=== PATIENT | male | born 1950 | race African-American/Black ===

== ENCOUNTER 2017-03-09 09:32 | Emergency (ER) | payer MEDICAID ==
[~2017-03-09] VITALS: Ht 190.5 cm; Wt 86.4 kg
[~2017-03-09 09:32] MED LIST: NOCURR
[2017-03-09] MEDS ORDERED: PHENYLEPHRINE HCL 1% 15 ML NASAL SPRAY NASAL ONE (10:30)
[2017-03-09 12:43] VITALS: BP 153/89
== END 2017-03-09 12:54 | disposition home or self-care (01) ==
LOC: EMS 09:33
DX: R04.0 Epistaxis (principal); I10 Essential (primary) hypertension; F17.210 Nicotine dependence, cigarettes, uncomplicated; F12.90 Cannabis use, unspecified, uncomplicated
CPT/HCPCS: 30901; 99283; 99284

== ENCOUNTER 2017-03-11 11:14 | Emergency (ER) | payer SELFPAY ==
[~2017-03-11] VITALS: Ht 190.5 cm; Wt 86.0 kg
[2017-03-11 12:44] VITALS: BP 142/85
== END 2017-03-11 13:00 | disposition home or self-care (01) ==
LOC: EMS 11:17
DX: R04.0 Epistaxis (principal); I10 Essential (primary) hypertension; F17.210 Nicotine dependence, cigarettes, uncomplicated; F12.90 Cannabis use, unspecified, uncomplicated
CPT/HCPCS: 99283

== ENCOUNTER 2017-03-15 03:32 | Inpatient (IN) | payer MEDICAID ==
[2017-03-15] VITALS (16 sets, daily range): BP systolic 118–158; BP diastolic 66–90
[~2017-03-15] VITALS: Ht 185.4 cm; Wt 72.8 kg
[2017-03-15 03:50] LABS: HEMATOCRIT 23.6 % (41-53); HEMOGLOBIN 7.2 g/dL (13.5-17.5); MEAN CORPUSCULAR HEMOGLOBIN 19.6 pg (26.0-34.0); MEAN CORPUSCULAR HGB CONC 30.5 G/dL (31.0-37.0); MEAN CORPUSCULAR VOLUME 64 fL (80-100); PLATELET COUNT (AUTO) 385 K/uL (150-450); RED BLOOD CELL COUNT(AUTO) 3.67 MIL/uL (4.50-5.90); RED CELL DISTRIBUTION WIDTH 22.9 % (11.5-14.5); WHITE BLOOD COUNT (AUTO) 5.9 K/uL (4.5-11.0)
[2017-03-15 03:53] LABS: ANION GAP 11 mmol/L (8-16); CALCIUM, TOTAL 8.5 mg/dL (8.8-10.5); CARBON DIOXIDE 22 mmol/L (22-29); CHLORIDE 101 mmol/L (98-107); CREATININE 1.66 mg/dL (0.60-1.30); GLOMERULAR FILTR. RATE CALC 51 mL/min (>60); POTASSIUM 3.8 mmol/L (3.5-5.1); SODIUM SERUM 134 mmol/L (136-145); UREA NITROGEN, BLOOD 15 mg/dL (7-18)
[2017-03-15 04:00] LABS: PROTHROMBIN TIME 10.1 SEC (9.4-11.6)
[2017-03-15 04:05] LABS: LYMPHOCYTES % (MANUAL) 47 % (22-44); TOTAL CELLS COUNTED 100
[2017-03-15 04:06] LABS: RBC MORPHOLOGY COMMENT ABNORMAL RBC MORPH
[2017-03-15] MEDS ORDERED: 0.9% SODIUM CHLORIDE 10 ML SYRINGE IVP PRN (04:15)
[2017-03-15] MEDS ORDERED: ONDANSETRON HCL 4 MG/2 ML VIAL IVP PRN ×2 (04:15→13:15)
[2017-03-15] MEDS ORDERED: HydrALAZINE HCL 20 MG/ML VIAL IVP ONE ×2 (04:15)
[2017-03-15 04:18] LABS: ALANINE AMINOTRANSFERASE 80 U/L (12-78); ALBUMIN 3.4 g/dL (3.4-5.0); ASPARTATE AMINOTRANSFERASE 77 U/L (15-37); BILIRUBIN,TOTAL 0.2 mg/dL (0.1-1.0); CREATINE KINASE MB 2.8 ng/mL (0-5); CREATINE KINASE, TOTAL 226 U/L (39-308); TOTAL PROTEIN, SERUM 7.8 g/dL (6.4-8.2)
[2017-03-15] MEDS ORDERED: LABETALOL HCL 200 MG in DEXTROSE 5%-WATER 160 ML IV PRN (04:21)
[2017-03-15 04:29] LABS: APPEARANCE,URINE CLEAR (CLEAR); GLUCOSE, URINE (UA) NEGATIVE (NEGATIVE); KETONES,URINE NEGATIVE (NEGATIVE); LEUKOCYTE ESTERASE ,URINE NEGATIVE (NEGATIVE); OCCULT BLOOD,URINE NEGATIVE (NEGATIVE); PH,URINE 5.5 (5.0-8.0); PROTEIN,URINE NEGATIVE (NEGATIVE)
[2017-03-15 04:33] LABS: ADD UA MICROSCOPIC NO
[2017-03-15] MEDS ORDERED: MAGNESIUM HYDROXIDE SUSPENSION 30 ML UDCUP PO PRN (13:15)
[2017-03-15] MEDS ORDERED: ALBUTEROL SULFATE 2.5 MG/0.5 ML NEB SOLUTION NEB PRN (13:15)
[2017-03-15] MEDS ORDERED: HYDROCODONE/ACETAMINOPHEN 5-325 MG TABLET PO PRN (13:15)
[2017-03-15] MEDS ORDERED: IPRATROPIUM BROMIDE 0.5 MG/2.5 ML NEB SOLUTION NEB PRN (13:15)
[2017-03-15] MEDS ORDERED: MORPHINE SULFATE 2 MG/ML SYRINGE IVP PRN (13:15)
[2017-03-15] MEDS ORDERED: BISACODYL 10 MG RECTAL RECTAL SUPPOSITORY PR PRN (13:15)
[2017-03-15 14:28] LABS: HEMATOCRIT 23.1 % (41-53); MEAN CORPUSCULAR HEMOGLOBIN 19.4 pg (26.0-34.0); MEAN CORPUSCULAR HGB CONC 29.9 G/dL (31.0-37.0); MEAN CORPUSCULAR VOLUME 65 fL (80-100); PLATELET COUNT (AUTO) 331 K/uL (150-450); RED BLOOD CELL COUNT(AUTO) 3.55 MIL/uL (4.50-5.90); RED CELL DISTRIBUTION WIDTH 22.1 % (11.5-14.5); WHITE BLOOD COUNT (AUTO) 4.5 K/uL (4.5-11.0)
[2017-03-15 14:31] LABS: HEMOGLOBIN 6.9 g/dL (13.5-17.5)
[2017-03-15 14:54] LABS: EOSINOPHILS % (MANUAL) 1 % (1-6); LYMPHOCYTES % (MANUAL) 34 % (22-44); TOTAL CELLS COUNTED 100
[2017-03-15] MEDS: DEXTROSE 5%-0.9% SODIUM CHL 1,000 ML IV SCH (15:39)
[2017-03-15] MEDS ORDERED: ACETAMINOPHEN 650 MG/20.3 ML SOLUTION UDCUP NG PRN (18:45)
[2017-03-15] MEDS: PIPERACILLIN/TAZO 3.375 GM/D5W 50 ML IV SCH (20:14)
[2017-03-15] MEDS ORDERED: ACETAMINOPHEN 325 MG RECTAL SUPPOSITORY PR PRN (20:15)
[2017-03-15] MEDS ORDERED: ACETAMINOPHEN 650 MG RECTAL SUPPOSITORY PR PRN (20:30)
[2017-03-15] MEDS ORDERED: VANCOMYCIN HCL 1.5 GM in DEXTROSE 5%-WATER 250 ML IV ONE (21:00)
[2017-03-15] MEDS: DOCUSATE SODIUM 100 MG CAPSULE PO SCH (21:00)
[2017-03-15] MEDS: LABETALOL HCL 200 MG in DEXTROSE 5%-WATER 160 ML IV PRN (22:39)
[2017-03-16] VITALS (8 sets, daily range): BP systolic 116–158; BP diastolic 65–87
[2017-03-16] MEDS ORDERED: SODIUM CHLORIDE 0.9% 0 ML IV ONE (01:10)
[2017-03-16] MEDS: DEXTROSE 5%-0.9% SODIUM CHL 1,000 ML IV SCH ×2 (01:37→21:49)
[2017-03-16] MEDS: PIPERACILLIN/TAZO 3.375 GM/D5W 50 ML IV SCH ×4 (03:34→21:03)
[2017-03-16] MEDS: LABETALOL HCL 200 MG in DEXTROSE 5%-WATER 160 ML IV PRN (04:01)
[2017-03-16 05:40] LABS: EOSINOPHILS % (AUTO) 0.4 % (1.0-6.0); HEMATOCRIT 29.5 % (41-53); HEMOGLOBIN 8.7 g/dL (13.5-17.5); LYMPHOCYTES # (AUTO) 1.9 K/uL (1.0-4.8); MEAN CORPUSCULAR HEMOGLOBIN 20.5 pg (26.0-34.0); MEAN CORPUSCULAR HGB CONC 29.6 G/dL (31.0-37.0); MEAN CORPUSCULAR VOLUME 70 fL (80-100); MONOCYTES # (AUTO) 0.7 K/uL (0.1-1.0); MONOCYTES % (AUTO) 9.6 % (2.0-9.0); NEUTROPHILS # (AUTO) 4.5 K/uL (1.8-7.7); PLATELET COUNT (AUTO) 311 K/uL (150-450); RED BLOOD CELL COUNT(AUTO) 4.25 MIL/uL (4.50-5.90); RED CELL DISTRIBUTION WIDTH 25.6 % (11.5-14.5); WHITE BLOOD COUNT (AUTO) 7.1 K/uL (4.5-11.0)
[2017-03-16 06:01] LABS: ALBUMIN 2.8 g/dL (3.4-5.0); BILIRUBIN,TOTAL 0.6 mg/dL (0.1-1.0); CALCIUM, TOTAL 8.2 mg/dL (8.8-10.5); CREATININE 1.53 mg/dL (0.60-1.30); PHOSPHORUS 3.1 mg/dL (2.5-4.9); POTASSIUM 3.8 mmol/L (3.5-5.1); TOTAL PROTEIN, SERUM 6.7 g/dL (6.4-8.2)
[2017-03-16] MEDS: VANCOMYCIN HCL 1.5 GM in DEXTROSE 5%-WATER 250 ML IV SCH (08:15)
[2017-03-16] MEDS: DOCUSATE SODIUM 100 MG CAPSULE PO SCH ×2 (08:25→21:02)
[2017-03-16] MEDS: PANTOPRAZOLE SODIUM 40 MG/VIAL IVP SCH (08:25)
[2017-03-16 08:53] LABS: RBC MORPHOLOGY COMMENT DIMORPHIC RBC
[2017-03-17] MEDS: PIPERACILLIN/TAZO 3.375 GM/D5W 50 ML IV SCH ×4 (03:23→21:09)
[2017-03-17 04:22] VITALS: BP 145/89
[2017-03-17 07:00] LABS: CALCIUM, TOTAL 8.3 mg/dL (8.8-10.5); CREATININE 1.78 mg/dL (0.60-1.30)
[2017-03-17 07:26] VITALS: BP 151/96
[2017-03-17 07:29] LABS: EOSINOPHILS % (AUTO) 0.9 % (1.0-6.0); HEMATOCRIT 29.8 % (41-53); LYMPHOCYTES # (AUTO) 2.6 K/uL (1.0-4.8); MEAN CORPUSCULAR HEMOGLOBIN 20.7 pg (26.0-34.0); MEAN CORPUSCULAR HGB CONC 30.1 G/dL (31.0-37.0); MEAN CORPUSCULAR VOLUME 69 fL (80-100); MONOCYTES # (AUTO) 1.2 K/uL (0.1-1.0); MONOCYTES % (AUTO) 14.2 % (2.0-9.0); NEUTROPHILS # (AUTO) 4.4 K/uL (1.8-7.7); NEUTROPHILS % (AUTO) 52.9 % (40.0-70.0); PLATELET COUNT (AUTO) 318 K/uL (150-450); RED BLOOD CELL COUNT(AUTO) 4.33 MIL/uL (4.50-5.90); RED CELL DISTRIBUTION WIDTH 25.8 % (11.5-14.5); WHITE BLOOD COUNT (AUTO) 8.2 K/uL (4.5-11.0)
[2017-03-17] MEDS: VANCOMYCIN HCL 1.5 GM in DEXTROSE 5%-WATER 250 ML IV SCH (07:56)
[2017-03-17] MEDS: PANTOPRAZOLE SODIUM 40 MG/VIAL IVP SCH (07:57)
[2017-03-17] MEDS: DOCUSATE SODIUM 100 MG CAPSULE PO SCH ×2 (07:57→21:09)
[2017-03-17 08:45] LABS: RBC MORPHOLOGY COMMENT DIMORPHIC RBC
[2017-03-17 11:25] VITALS: BP 147/77
[2017-03-17] MEDS: DEXTROSE 5%-0.9% SODIUM CHL 1,000 ML IV SCH ×2 (13:07→21:08)
[2017-03-17 15:48] VITALS: BP 142/75
[2017-03-17 19:48] VITALS: BP 146/88
[2017-03-17] MEDS: SIMVASTATIN 10 MG TABLET PO SCH (21:09)
[2017-03-17 23:45] VITALS: BP 152/86
[2017-03-18 04:08] LABS: HEPATITIS Bs ANTIGEN SCREEN P Negative (Negative); HEPATITIS C AB SCREEN >11.0 s/co ratio (0.0-0.9)
[2017-03-18] MEDS: PIPERACILLIN/TAZO 3.375 GM/D5W 50 ML IV SCH ×4 (04:14→23:02)
[2017-03-18] MEDS: ENALAPRILAT DIHYDRATE 1.25 MG/ML VIAL IVP PRN ×2 (04:16→23:55)
[2017-03-18 04:22] VITALS: BP 162/90
[2017-03-18 07:21] LABS: CALCIUM, TOTAL 8.6 mg/dL (8.8-10.5); CREATININE 1.66 mg/dL (0.60-1.30)
[2017-03-18 08:06] VITALS: BP 155/73
[2017-03-18] MEDS: DOCUSATE SODIUM 100 MG CAPSULE PO SCH ×2 (08:06→20:29)
[2017-03-18] MEDS: PANTOPRAZOLE SODIUM 40 MG/VIAL IVP SCH (08:17)
[2017-03-18] MEDS: VANCOMYCIN HCL 1.25 GM in DEXTROSE 5%-WATER 250 ML IV SCH ×2 (08:17→20:24)
[2017-03-18] MEDS: DEXTROSE 5%-0.9% SODIUM CHL 1,000 ML IV SCH ×2 (10:38→23:05)
[2017-03-18 11:28] VITALS: BP 150/86
[2017-03-18 15:35] VITALS: BP 158/88
[2017-03-18] MEDS: VANCOMYCIN HCL 1.5 GM in DEXTROSE 5%-WATER 250 ML IV SCH ×2 (20:22→20:23)
[2017-03-18] MEDS: SIMVASTATIN 10 MG TABLET PO SCH (20:29)
[2017-03-18] MEDS: ACETAMINOPHEN 325 MG TABLET PO PRN (23:55)
[2017-03-18 23:58] VITALS: BP 145/103
[2017-03-19] MEDS: PIPERACILLIN/TAZO 3.375 GM/D5W 50 ML IV SCH ×4 (03:25→22:59)
[2017-03-19 04:27] VITALS: BP 130/83
[2017-03-19 07:15] LABS: CALCIUM, TOTAL 9.1 mg/dL (8.8-10.5); CREATININE 1.52 mg/dL (0.60-1.30)
[2017-03-19 07:38] VITALS: BP 110/85
[2017-03-19] MEDS: DOCUSATE SODIUM 100 MG CAPSULE PO SCH ×2 (08:44→20:18)
[2017-03-19] MEDS: VANCOMYCIN HCL 1.25 GM in DEXTROSE 5%-WATER 250 ML IV SCH ×2 (08:45→20:06)
[2017-03-19] MEDS: PANTOPRAZOLE SODIUM 40 MG/VIAL IVP SCH (08:45)
[2017-03-19] MEDS: DEXTROSE 5%-0.9% SODIUM CHL 1,000 ML IV SCH (15:00)
[2017-03-19 15:25] VITALS: BP 173/93
[2017-03-19] MEDS: ENALAPRILAT DIHYDRATE 1.25 MG/ML VIAL IVP PRN (15:56)
[2017-03-19 17:18] VITALS: BP 114/76
[2017-03-19 19:33] VITALS: BP 145/86
[2017-03-19] MEDS: ACETAMINOPHEN 325 MG TABLET PO PRN (20:07)
[2017-03-19] MEDS: SIMVASTATIN 10 MG TABLET PO SCH (20:18)
[2017-03-19 22:58] LABS: APPEARANCE,URINE CLOUDY (CLEAR); GLUCOSE, URINE (UA) NEGATIVE (NEGATIVE); KETONES,URINE NEGATIVE (NEGATIVE); LEUKOCYTE ESTERASE ,URINE NEGATIVE (NEGATIVE); OCCULT BLOOD,URINE LARGE (NEGATIVE); PROTEIN,URINE SEE CONFIRM (NEGATIVE)
[2017-03-19 22:59] LABS: ADD UA MICROSCOPIC YES
[2017-03-19 23:32] LABS: RBC,URINE >100 /HPF (0-2); SULFOSALICYLIC ACID,URINE 2+ (Negative)
[2017-03-19 23:33] LABS: SQUAMOUS EPITHELIAL CELL,UR Few /LPF (None Seen); WBC,URINE 0-2 /HPF (0-5)
[2017-03-19 23:51] VITALS: BP 151/86
[2017-03-20] MEDS: PIPERACILLIN/TAZO 3.375 GM/D5W 50 ML IV SCH ×4 (03:45→22:04)
[2017-03-20 04:02] VITALS: BP 152/80
[2017-03-20] MEDS: DEXTROSE 5%-0.9% SODIUM CHL 1,000 ML IV SCH (05:14)
[2017-03-20 06:42] LABS: BASOPHILS % (AUTO) 0.1 % (0.0-2.0); HEMATOCRIT 31.4 % (41-53); HEMOGLOBIN 9.3 g/dL (13.5-17.5); LYMPHOCYTES # (AUTO) 1.5 K/uL (1.0-4.8); LYMPHOCYTES % (AUTO) 16.8 % (22.0-44.0); MEAN CORPUSCULAR HEMOGLOBIN 20.2 pg (26.0-34.0); MEAN CORPUSCULAR HGB CONC 29.7 G/dL (31.0-37.0); MEAN CORPUSCULAR VOLUME 68 fL (80-100); MONOCYTES % (AUTO) 10.6 % (2.0-9.0); NEUTROPHILS # (AUTO) 6.1 K/uL (1.8-7.7); NEUTROPHILS % (AUTO) 66.5 % (40.0-70.0); PLATELET COUNT (AUTO) 415 K/uL (150-450); WHITE BLOOD COUNT (AUTO) 9.1 K/uL (4.5-11.0)
[2017-03-20 07:25] LABS: CREATININE 1.56 mg/dL (0.60-1.30); MAGNESIUM 1.9 mg/dL (1.80-2.40); POTASSIUM 3.9 mmol/L (3.5-5.1)
[2017-03-20 07:39] VITALS: BP 153/87
[2017-03-20] MEDS: PANTOPRAZOLE SODIUM 40 MG/VIAL IVP SCH (08:15)
[2017-03-20] MEDS: VANCOMYCIN HCL 1.25 GM in DEXTROSE 5%-WATER 250 ML IV SCH ×2 (08:16→19:57)
[2017-03-20] MEDS: DOCUSATE SODIUM 100 MG CAPSULE PO SCH ×2 (08:16→20:02)
[2017-03-20 08:41] LABS: RBC MORPHOLOGY COMMENT DIMORPHIC RBC
[2017-03-20 11:26] VITALS: BP 136/74
[2017-03-20 15:23] VITALS: BP 149/86
[2017-03-20] MEDS: ACETAMINOPHEN 325 MG TABLET PO PRN ×2 (17:17→21:17)
[2017-03-20 19:29] VITALS: BP 141/75
[2017-03-20] MEDS: SIMVASTATIN 10 MG TABLET PO SCH (20:00)
[2017-03-20 23:38] VITALS: BP 134/81
[2017-03-21] MEDS: DEXTROSE 5%-0.9% SODIUM CHL 1,000 ML IV SCH (03:57)
[2017-03-21] MEDS: PIPERACILLIN/TAZO 3.375 GM/D5W 50 ML IV SCH ×2 (03:57→13:55)
[2017-03-21] MEDS: ACETAMINOPHEN 325 MG TABLET PO PRN (04:50)
[2017-03-21 04:55] VITALS: BP 156/95
[2017-03-21 06:37] LABS: CALCIUM, TOTAL 8.9 mg/dL (8.8-10.5); CREATININE 1.5 mg/dL (0.60-1.30)
[2017-03-21 06:44] LABS: BASOPHILS % (AUTO) 0.2 % (0.0-2.0); EOSINOPHILS % (AUTO) 6.1 % (1.0-6.0); HEMATOCRIT 31.8 % (41-53); HEMOGLOBIN 9.4 g/dL (13.5-17.5); LYMPHOCYTES # (AUTO) 1.8 K/uL (1.0-4.8); LYMPHOCYTES % (AUTO) 17.5 % (22.0-44.0); MEAN CORPUSCULAR HEMOGLOBIN 20.3 pg (26.0-34.0); MEAN CORPUSCULAR HGB CONC 29.7 G/dL (31.0-37.0); MEAN CORPUSCULAR VOLUME 68 fL (80-100); MONOCYTES # (AUTO) 0.8 K/uL (0.1-1.0); NEUTROPHILS # (AUTO) 6.8 K/uL (1.8-7.7); NEUTROPHILS % (AUTO) 68.2 % (40.0-70.0); PLATELET COUNT (AUTO) 380 K/uL (150-450); RED BLOOD CELL COUNT(AUTO) 4.65 MIL/uL (4.50-5.90); RED CELL DISTRIBUTION WIDTH 25.6 % (11.5-14.5)
[2017-03-21 07:32] VITALS: BP 144/68
[2017-03-21] MEDS: VANCOMYCIN HCL 1.25 GM in DEXTROSE 5%-WATER 250 ML IV SCH (09:05)
[2017-03-21] MEDS: PANTOPRAZOLE SODIUM 40 MG/VIAL IVP SCH (09:05)
[2017-03-21] MEDS: DOCUSATE SODIUM 100 MG CAPSULE PO SCH (09:05)
[2017-03-21 09:28] LABS: RBC MORPHOLOGY COMMENT DIMORPHIC RBC
[2017-03-21 11:30] VITALS: BP 145/92
== END 2017-03-21 15:00 | DRG 44 ==
LOC: EMS 03:33 → ICU 04:40 → 5S 03-16 13:02
PROVIDERS: ADMIT Hospitalist; ATTEND Hospitalist
PROC: 30233N1 Transfusion of Nonautologous Red Blood Cells into Peripheral Vein, Percutaneous Approach (ICD-10-PCS; principal; 2017-03-15)
DX: I61.5 Nontraumatic intracerebral hemorrhage, intraventricular (principal); J69.0 Pneumonitis due to inhalation of food and vomit; G81.91 Hemiplegia, unspecified affecting right dominant side; I10 Essential (primary) hypertension; F17.210 Nicotine dependence, cigarettes, uncomplicated; D64.9 Anemia, unspecified; R47.01 Aphasia; F19.10 Other psychoactive substance abuse, uncomplicated; Z86.73 Personal history of transient ischemic attack (TIA), and cerebral infarction without residual deficits; R41.4 Neurologic neglect syndrome; F14.10 Cocaine abuse, uncomplicated; F12.10 Cannabis abuse, uncomplicated
CPT/HCPCS: 51702; 70450; 80074; 82607; 82728; 82746; 83540; 83550; 83735; 84100; 84145; 86850; 86900; 86901; 86920; 87040; 87081; 87086; 92507; 92523; 92526; 93005; 93306; 96365; 97110; 97112; 97163; 97167; 97530; 97535; 99291; C9113; J0360; J2543; J3370; J3490; J7030; J7042; J7060; P9016

== ENCOUNTER 2017-03-27 12:16 | Emergency (ER) | payer MEDICAID ==
[~2017-03-27] VITALS: Ht 190.5 cm; Wt 113.6 kg
[2017-03-27] MEDS ORDERED: HYDR-3290 PO (13:21)
[2017-03-27] MEDS ORDERED: AUD NEB (13:21)
[2017-03-27 16:50] LABS: BASOPHILS % (AUTO) 0.1 % (0.0-2.0); EOSINOPHILS % (AUTO) 3.1 % (1.0-6.0); HEMATOCRIT 30.5 % (41-53); HEMOGLOBIN 9.2 g/dL (13.5-17.5); LYMPHOCYTES # (AUTO) 2.7 K/uL (1.0-4.8); LYMPHOCYTES % (AUTO) 34.2 % (22.0-44.0); MEAN CORPUSCULAR HEMOGLOBIN 20.5 pg (26.0-34.0); MEAN CORPUSCULAR HGB CONC 30.3 G/dL (31.0-37.0); MEAN CORPUSCULAR VOLUME 68 fL (80-100); MONOCYTES # (AUTO) 0.8 K/uL (0.1-1.0); MONOCYTES % (AUTO) 10.7 % (2.0-9.0); NEUTROPHILS # (AUTO) 4.1 K/uL (1.8-7.7); NEUTROPHILS % (AUTO) 51.9 % (40.0-70.0); PLATELET COUNT (AUTO) 449 K/uL (150-450); RED BLOOD CELL COUNT(AUTO) 4.51 MIL/uL (4.50-5.90); RED CELL DISTRIBUTION WIDTH 24.4 % (11.5-14.5); WHITE BLOOD COUNT (AUTO) 7.9 K/uL (4.5-11.0)
[2017-03-27 16:57] VITALS: BP 139/82
[2017-03-27 17:33] LABS: RBC MORPHOLOGY COMMENT ABNORMAL RBC MORPH
[2017-03-27 19:28] LABS: ANION GAP 12 mmol/L (8-16); CALCIUM, TOTAL 9.6 mg/dL (8.8-10.5); CARBON DIOXIDE 23 mmol/L (22-29); CHLORIDE 100 mmol/L (98-107); CREATININE 1.29 mg/dL (0.60-1.30); GLOMERULAR FILTR. RATE CALC > 60 mL/min (>60); POTASSIUM 4.7 mmol/L (3.5-5.1); SODIUM SERUM 135 mmol/L (136-145); UREA NITROGEN, BLOOD 21 mg/dL (7-18)
[2017-03-27 19:33] LABS: ALANINE AMINOTRANSFERASE 35 U/L (12-78); ALBUMIN 3.2 g/dL (3.4-5.0); ASPARTATE AMINOTRANSFERASE 38 U/L (15-37); BILIRUBIN,TOTAL 0.2 mg/dL (0.1-1.0); TOTAL PROTEIN, SERUM 8.2 g/dL (6.4-8.2)
== END 2017-03-27 17:11 | disposition home or self-care (01) ==
LOC: EMS 12:19
DX: Z13.89 Encounter for screening for other disorder (principal); I10 Essential (primary) hypertension; F12.90 Cannabis use, unspecified, uncomplicated; F17.210 Nicotine dependence, cigarettes, uncomplicated; Z86.73 Personal history of transient ischemic attack (TIA), and cerebral infarction without residual deficits
CPT/HCPCS: 99284